=== PATIENT | female | born 1965 | race Caucasian/White ===

== ENCOUNTER → 2019-12-17 | Outpatient (CLI) | payer OTHER ==
[~2019-12-17] MED LIST: FERR325 PO
== END | disposition home or self-care (01) ==
LOC: LAB 07:32 → LAB SHORT 07:32
DX: L82.1 Other seborrheic keratosis (principal)
CPT/HCPCS: 88305

== ENCOUNTER → 2020-12-19 | Outpatient (CLI) | payer OTHER ==
[2020-12-19 08:57] LABS: BASOPHILS ABSOLUTE AUTO 0.03 K/mm3 (0.00-0.23); BASOPHILS PERCENT AUTO 1 % (0-2); EOSINOPHILS ABSOLUTE AUTO 0.09 K/mm3 (0.00-0.68); EOSINOPHILS PERCENT AUTO 2 % (0-6); Hematocrit 46.8 % (33.0-51.0); Hemoglobin 15.6 g/dL (11.5-16.0); IMMATURE GRAN ABSOLUTE AUTO 0.01 K/mm3 (0.00-0.10); IMMATURE GRAN PERCENT AUTO 0 % (0-1); LYMPHOCYTES ABSOLUTE AUTO 1.55 K/mm3 (0.84-5.20); LYMPHOCYTES PERCENT AUTO 28 % (21-46); MONOCYTES PERCENT AUTO 6 % (4-13); Mean Corpuscular HGB 31.8 pg (26.0-34.0); Mean Corpuscular HGB Conc 33.3 g/dL (31.5-36.5); Mean Corpuscular Volume 95 fL (80-100); Mean Platelet Volume 12.3 fL (9.1-12.4); NEUTROPHILS ABSOLUTE AUTO 3.52 K/mm3 (1.96-9.15); NEUTROPHILS PERCENT AUTO 64 % (41-73); Platelet Count 159 K/mm3 (150-400); RDW Coefficient Variation 12.9 % (11.7-14.2); RDW Standard Deviation 45.4 fL (35.1-46.3); Red Blood Cell Count 4.91 M/mm3 (3.80-5.20)
[2020-12-19 09:08] LABS: Alanine Aminotransfer (ALT/SGP 18 U/L (12-78); Albumin, Blood 4.4 g/dL (3.4-5.0); Albumin/Globulin Ratio 1.3 (0.8-1.8); Alk Phos 89 U/L (40-126); Anion Gap 6 mmol/L (6-16); Aspartate Aminotrans (AST/SGOT 11 U/L (12-37); Bilirubin, Total 0.6 mg/dL (0.1-1.0); Blood Urea Nitrogen 12 mg/dL (8-24); Bun/Creatinine Ratio 16.2 (12.0-20.0); CHOL/HDL RATIO 2.5; CO2, Blood 28 mmol/L (21-32); Calcium, Blood 8.9 mg/dL (8.5-10.1); Chloride, Blood 104 mmol/L (98-108); Cholesterol 163 mg/dL (50-200); Creatinine, Blood 0.74 mg/dL (0.40-1.00); Globulin, Blood 3.3 g/dL (2.2-4.0); Glomerular Filtration Rate >60 (60-); Glucose, Blood 94 mg/dL (70-99); HDL Cholesterol 65 mg/dL (>39); LDL/HDL RATIO 1.3; Low Density Lipoprotein Chol 87 mg/dL (<110); Potassium, Blood 4.3 mmol/L (3.5-5.5); Sodium, Blood 138 mmol/L (136-145); Total Protein, Blood 7.7 g/dL (6.4-8.2); Triglycerides 57 mg/dL (30-160); Very Low Density Lipoprot Chol 11 mg/dL (6-32)
== END | disposition home or self-care (01) ==
LOC: LAB SHORT 08:52 → LAB 08:52
PROVIDERS: Physician Assistant
DX: Z00.00 Encounter for general adult medical examination without abnormal findings (principal); Z13.220 Encounter for screening for lipoid disorders; E03.9 Hypothyroidism, unspecified
CPT/HCPCS: 80053; 80061; 84443; 85025

== ENCOUNTER 2021-04-02 12:59 | Day surgery (SDC) | payer OTHER ==
[~2021-04-02] VITALS: Ht 165.1 cm; Wt 73.7 kg
[2021-04-02] MEDS ORDERED: PROG100 (13:25)
[2021-04-02] MEDS ORDERED: VITAMIN D310 MC1 (13:25)
[2021-04-02] MEDS ORDERED: VITAMIN B COMP0.4 MG (13:25)
[2021-04-02] MEDS ORDERED: LEVSOD75 (13:25)
[2021-04-02] MEDS ORDERED: VALA500 (13:26)
== END 2021-04-02 15:50 | disposition home or self-care (01) ==
LOC: ORSCSDS 12:59
PROVIDERS: Internal Medicine Gastroenterology
PROC: 0DJD8ZZ Inspection of Lower Intestinal Tract, Via Natural or Artificial Opening Endoscopic (ICD-10-PCS; principal; 2021-04-02 14:15)
DX: Z12.11 Encounter for screening for malignant neoplasm of colon (principal); Z86.010 Personal history of colon polyps; N81.6 Rectocele; K57.30 Diverticulosis of large intestine without perforation or abscess without bleeding; Z79.899 Other long term (current) drug therapy
CPT/HCPCS: J2704; J7120

== ENCOUNTER 2021-08-27 08:08 | Day surgery (SDC) | payer OTHER ==
[~2021-08-27] VITALS: Ht 165.1 cm; Wt 75.4 kg
[~2021-08-27 08:08] MED LIST changes: +LEVSOD75 PO; +MAGNESIUM PO; +PROG100 PO; +VALA500 PO; +VITAMIN B COMP0.4 MG PO; +VITAMIN D310 MC1 PO
--- NOTE | 2021-08-27 08:35 | NUR ---
Ambulatory in Day SurgeryLungs clear T/O to Auscultation. History, Chart, Medications and Allergies reviewed before start of procedure.Pre-Op teaching done. Pt verbalizes understanding. Patient confirms NPO status and agrees with scheduled surgery.
--- NOTE | 2021-08-27 10:03 | NUR ---
08/27/21 Juan Luis3 Ivania Love PRIOR TO SURGERY START TRINH TABLE IN PLACE & SECURED TO PROTECT PATIENT'S FACE,HEAD, AND INTUBATION TUBE.
--- NOTE | 2021-08-27 16:00 | NUR ---
ASSUMED CARE OF PATIENT. RESTING IN BED AT THIS TIME, DENIES PAIN, DENIES N/V. VSS ON RA. AGREEABLE TO WALK LATER THIS AFTERNOON.
--- NOTE | 2021-08-27 16:06 | NUR ---
SHIFT SUMMARY PT HAS DONE WELL POST OP. PAIN WELL MANAGED w/ 1 OXY & TYLENOL. SMALL AMOUNT OF VAG BLEEDING. ZAMZAM PAD IN PLACE. TOLERAITN SIPS OF FLUIDS & BITES OF FOOD, BUT NO AP[PETITE. COOPERATIVE TO THE PLANS OF OOB FOR DINNER. REPORT TO MARJAN.
--- NOTE | 2021-08-27 18:29 | NUR ---
MODERATE AMOUNT OF BLEEDING WHEN PATIENT STOOD AT EDGE OF BED. AMBULATED ABOUT 50 FEET. C/O DIZZINESS, BUT RESOLVED. ZAMZAM PAD IN PLACE, SMALLA MOUNT OF BLEEDING ON IT AFTER WALKING. BLOOD PRESSURE CHECKED & STABLE. NO OTHER CHANGES. WILL REPORT TO ONCOMING RN.
--- NOTE | 2021-08-28 00:04 | NUR ---
ASSESSED PT BLEEDING CHANGED PAD, NOTED TO HAVE DARK RED SATURATION, ZAMZAM AN CATH CARE COMPLETE. PT MEDICATED FOR PAIN PER EMAR, BP STABLE.PT STOOD AT SIDE OF BED, REPORTED MILD DIZZINESS, 'LEGS FEEL WOBBLY'. K-PAD APPLIED TO ABD IN BED. CONTINUE TO MONITOR, CALL LIGHT IN REACH.
--- NOTE | 2021-08-28 00:34 | NUR ---
VIDEO TECHNICIAN PERFORMED ASSESSMENT ALONGSIDE THIS RN. AGREE W/VIDEO TECHNICIAN'S DOCUMENTED ASSESSMENT.
--- NOTE | 2021-08-28 04:28 | NUR ---
SHIFT SUMMARY, PT POD 1 FOR LAVH, A&P REPAIR. ZIEGLER DRAINING TO GRAVITY, STAT LOCK INPLACE, WITH ORDERS TO DC THIS AM. PT HAS HAD MODERATE BLEEDING WITH SATURATION OF ZAMZAM PADS X3 THIS SHIFT. PT REPORTS PAIN AT A 4/10 IS MEDICATED PER EMAR FOR PAIN. REASSESSMENT OF PAIN IS 3/10. K-PAD APPLIED TO ABD FOR COMFORT.PT REPORTS DIZZINESS IMPROVING UPON STANDING AT THE BEDSIDE, BP SUSTAINING IN THE 90S/50S T/O THIS SHIFT. BOWEL SOUNDS ARE HYPOACTIVE, REPORTS NO FLATUS YET, TOLERATING PO INTAKE WITH NO NAUSEA OR VOMITING. PLAN TO DC ZIEGLER AND INITIATE VOID TRIAL. AWAITING DISCHARGE PLANS, WILL CONTINUE TO MONITOR.
--- NOTE | 2021-08-28 07:22 | NUR ---
POD 1 S/P LAVH. P[T BP REMAINED HYPO 90'S/50'S, PT REP LESS DIZZINESS THIS AM. ABD INCISIONS CDI. PT HAD MOD AMT VAGINAL BLEEDING, BLEEDING DECREASING THIS AM; ZAMZAM PAD CHANGED X3. ZIEGLER D/C THIS AM, AWAITING FIRST VOID. PT KATLYN PO, NO N/V, PAIN MGD PER EMAR W/REP RELIEF.
[2021-08-28] MEDS ORDERED: DOCU100 PO (10:09)
[2021-08-28] MEDS ORDERED: ACET500 PO (10:09)
[2021-08-28] MEDS ORDERED: IBUP400 PO (10:10)
[2021-08-28] MEDS ORDERED: OXYC5 PO (10:11)
--- NOTE | 2021-08-28 15:38 | NUR ---
SPOKE WITH DR HUBBARD REGARDING PATIENTS POST VOID RESIDUALS. DR HUBBARD STATES SHE IS OKAY WITH DISCHARGING PATIENT STILL, SHE IS NOT CONCERNED AT THIS TIME DUE TO PATIENT STILL VOIDING A GOOD AMOUNT & PATIENTS NOT C/O BLADDER FULLNESS. PATIENT STATES SHE FEELS COMFOPRTABLE WITH DISCHARGING WELL.
--- NOTE | 2021-08-28 16:20 | NUR ---
DISCHARGE VSS ON RA. STERI STRIPS IN PLACE, C/D/I. ABDOMINAL PAIN & CRAMPING IS MANAGED WITH PAIN MEDICATION PER EMAR. EATING, DRINKING, & AMBULATING WELL. PATIENT HAS SOME POST VOID RESIDUAL BUT THIS RN TALKED WITH DR HUBBARD & SHE IS OKAY WITH THE RESIDUAL, SEE PREVIOUS NOTE. MINIMAL VAGINAL BLEEDING, ZAMZAM PAD IN PLACE. DISCUSSED DICHARGE INSTRUCTIONS, PATIENT REPORTS ALREADY HAVING RX SCRIPTS FILLED AT HOME. ESCORTED OUT VIA W/C.
== END 2021-08-28 17:00 | disposition home or self-care (01) ==
LOC: ORSCMMR 08:08 → SURS 13:23 → ORSCMMR 08-28 17:00
PROVIDERS: Obstetrics & Gynecology
PROC: 0UT94ZZ Resection of Uterus, Percutaneous Endoscopic Approach (ICD-10-PCS; principal; 2021-08-27 09:30)
PROC: 0JQC0ZZ Repair Pelvic Region Subcutaneous Tissue and Fascia, Open Approach (ICD-10-PCS; principal; 2021-08-27 09:30)
PROC: 0TQB8ZZ Repair Bladder, Via Natural or Artificial Opening Endoscopic (ICD-10-PCS; principal; 2021-08-27 09:30)
PROC: 0UT74ZZ Resection of Bilateral Fallopian Tubes, Percutaneous Endoscopic Approach (ICD-10-PCS; principal; 2021-08-27 09:30)
PROC: 0UT24ZZ Resection of Bilateral Ovaries, Percutaneous Endoscopic Approach (ICD-10-PCS; principal; 2021-08-27 09:30)
PROC: 0TSD0ZZ Reposition Urethra, Open Approach (ICD-10-PCS; principal; 2021-08-27 09:30)
DX: D25.9 Leiomyoma of uterus, unspecified (principal); N80.0 Endometriosis of uterus; N95.0 Postmenopausal bleeding; N81.2 Incomplete uterovaginal prolapse; N81.6 Rectocele; N39.3 Stress incontinence (female) (male); R10.2 Pelvic and perineal pain; N81.89 Other female genital prolapse; E03.9 Hypothyroidism, unspecified; Z79.899 Other long term (current) drug therapy
CPT/HCPCS: 88307; A9270; C1771; J0171; J0690; J1100; J1885; J2250; J2370; J2405; J2704; J3010; J7120

== ENCOUNTER 2024-05-20 06:37 | Day surgery (SDC) | payer OTHER ==
[~2024-05-20] VITALS: Ht 165.1 cm; Wt 72.6 kg
[~2024-05-20 06:37] MED LIST changes: +ACET500 PO; +DOCU100 PO; +IBUP400 PO; +OXYC5 PO
[2024-05-20] MEDS ORDERED: CLIMARA1 EACH (06:51)
[2024-05-20] MEDS ORDERED: ONDA4ODT (06:54)
[2024-05-20] MEDS ORDERED: PROGESTERONE200 MG (06:55)
[2024-05-20] MEDS ORDERED: Lactated Ringer's 1,000 ML IV ONE ×2 (07:40→07:50)
[2024-05-20] MEDS ORDERED: propofoL 50 ML IV ONE (07:40)
[2024-05-20 09:07] VITALS: BP 99/60
== END 2024-05-20 08:53 | disposition home or self-care (01) ==
LOC: ORSCSDS 06:37
DX: R10.13 Epigastric pain (principal); R11.2 Nausea with vomiting, unspecified; Z79.899 Other long term (current) drug therapy
CPT/HCPCS: 88305; 88342; J2704; J7120